=== PATIENT | female | born 1985 | race Two or more races ===

== ENCOUNTER 2017-04-25 21:26 | Emergency (ER) | payer OTHER ==
[~2017-04-25] VITALS: Ht 160 cm; Wt 49.0 kg
[2017-04-25 21:34] VITALS: Ht 160 cm; Wt 49.0 kg
--- NOTE | 2017-04-26 00:37 | ERD ---
ER Documentation Chief Complaint Date/Time DATE: 04/26/17 TIME: 00:29 Chief Complaint c/o back back, right pelvic pain x2 days. 17 weeks HPI This is a 32-year-old female who is approximately 17 weeks and presents the emergency department for complaints of right-sided intermittent 7 out of 10 cramping pelvic pain which radiates down her right leg. Patient also notes left-sided intermittent back pain, but denies numbness, tingling, bowel or bladder incontinence or saddle anesthesia. She denies trauma, fever, chills , dysuria, nausea, vomiting, diarrhea. She denies any vaginal discharge or vaginal bleeding. She states she has not attempted to treat her symptoms at home with any medication thus far. She denies any alleviating or exacerbating factors. ROS All systems reviewed and are negative except as per history of present illness. Allergies Allergies: Coded Allergies: No Known Allergy (Unverified , 04/25/17) PMhx/Soc History of Surgery: Yes ( 2016) Anesthesia Reaction: No Hx Neurological Disorder: No Hx Respiratory Disorders: No Hx Cardiac Disorders: No Hx Psychiatric Problems: No Hx Miscellaneous Medical Probl: No Hx Alcohol Use: No Hx Substance Use: No Hx Tobacco Use: No Smoking Status: Never smoker Physical Exam Vitals Vital Signs Date Time Temp Pulse Resp B/P Pulse Ox O2 Delivery O2 Flow Rate FiO2 04/25/17 21:34 98.3 97 20 111/73 99 Physical Exam Const: We will developed, well-nourished, in no acute distress Head: Atraumatic Eyes: Normal Conjunctiva ENT: Normal External Ears, Nose and Mouth. Neck: Full range of motion..~ No meningismus. Resp: Clear to auscultation bilaterally Cardio: Regular rate and rhythm, no murmurs Abd: Soft, non tender, non distended. Normal bowel sounds Skin: No petechiae or rashes Back: No midline or flank tenderness. Patient with full range of motion at hip and knee joints. Good strength at hip and knee joints. Distal sensation intact to light touch. Patient able to bear full weight and ambulate without difficulty Ext: No cyanosis, or edema Neur: Awake and alert Psych: Normal Mood and Affect Procedures/MDM This is a 32-year-old female who is approximately 17 weeks who presents emergency department for complaints of right pelvic pain and right back pain 2 days. After history and physical exam was performed the patient asked how long an ultrasound would take to complete and stated she was not willing to wait an hour for all tests and imaging to be completed. Patient refused blood work or urinalysis. I strongly recommended for the patient to stay in the emergency department so that we may complete the full assessment and workup for her right-sided pelvic pain during . I offered the patient pain medication as well immediate ordering of all tests and imaging but patient again refused. Patient appeared to be alert, oriented and mentally equipped to make her own decisions. Patient is decided to leave AGAINST MEDICAL ADVICE. Nursing staff notified. Return precautions discussed and I advised the patient to follow-up with her OB/ [facility] as soon as possible for proper management of her acute symptoms. Departure Diagnosis: Primary Impression: Multiple complaints Additional Impressions: Pelvic pain affecting Back pain Back pain location: low back pain Chronicity: acute Back pain laterality: left Sciatica presence: without sciatica Qualified Code: M54.5 - Acute left- sided low back pain without sciatica Left against medical advice CARMELA ARANA PA-C Apr 26, 2017 00:37
== END 2017-04-26 00:47 | disposition left against medical advice (07) ==
LOC: FTE 21:26
DX: O26.892 Other specified pregnancy related conditions, second trimester (principal); R10.2 Pelvic and perineal pain; M54.5 Low back pain; O99.89 Other specified diseases and conditions complicating pregnancy, childbirth and the puerperium; Z3A.17 17 weeks gestation of pregnancy
CPT/HCPCS: 99282